=== PATIENT | female | born 1945 | race Caucasian/White ===

== ENCOUNTER 2025-01-03 18:32 | Emergency (ER) | payer MEDICARE, OTHER ==
[~2025-01-03] VITALS: Ht 157.5 cm; Wt 68.0 kg
[~2025-01-03 18:32] MED LIST: ADULT LOW DOSE81 MG PO; ANTACID GELATI1 EACH PO; B COMPLEX WITH1 EACH PO; CLONAZEPAM1 MG PO; L-LYSINE500 M1 PO; LEVOTHYROXINE75 MCG PO; LOVASTATIN10 MG PO; OMEPRAZOLE20 MG PO; PROZAC20 MG; VITAMIN D35000 UNIT PO
[2025-01-03] MEDS ORDERED: NITROGLYCERIN PACKET TOP ONE (19:30)
[2025-01-03] MEDS ORDERED: LORazepam 2 MG/ML VIAL IV ONE (19:30)
[2025-01-03 19:31] LABS: BASOPHILS 0.8 % (0.1-1.2); EOSINOPHILS 5.2 % (0.7-5.8); HEMOGLOBIN 13.2 g/dL (11.2-15.7); LYMPHOCYTES 48.1 % (19.3-51.7); MCH 30.1 PG (25.6-32.2); MCHC 33.8 g/dL (32.2-35.5); MCV 88.8 fL (79.4-94.8); MONOCYTES 9.7 % (4.7-12.5); PLATELET COUNT 329 K/uL (182-369); RBC 4.39 M/uL (3.93-5.22)
[2025-01-03 19:41] LABS: INR 0.98 (0.80-1.30); PROTIME 12.6 Sec (11.2-14.2)
[2025-01-03 19:49] LABS: ALBUMIN 3.8 g/dL (3.4-5.0); ALBUMIN/GLOBULIN RATIO 1.12 (1.1-2.4); ALKALINE PHOSPHATASE 112 U/L (46-116); ALT (SGPT) 25 U/L (14-59); ANION GAP 13.6 (7-21); AST (SGOT) 12 U/L (15-37); BILIRUBIN, TOTAL 0.3 mg/dL (0.2-1.0); CALCIUM 9.1 mg/dL (8.5-10.1); CARBON DIOXIDE 26 mmol/L (21-32); CHLORIDE 105 mmol/L (98-107); CREATININE, SERUM 0.88 mg/dL (0.55-1.02); GLOMERULAR FILTRATION RATE,EST 68 mL/min (>60); MAGNESIUM 2.1 mg/dL (1.8-2.4); POTASSIUM 3.6 mmol/L (3.5-5.1); PROTEIN, TOTAL 7.2 g/dL (6.4-8.2); UREA NITROGEN 11 mg/dL (7-18)
[2025-01-03] MEDS ORDERED: LOVASTATIN40 MG PO (19:51)
[2025-01-03] MEDS ORDERED: ZOLPIDEM TARTRA10 MG PO (19:51)
[2025-01-03] MEDS ORDERED: ESCITALOPRAM OX20 MG PO (19:51)
[2025-01-03] MEDS ORDERED: ACYCLOVIR400 MG PO (19:52)
[2025-01-03] MEDS ORDERED: LORazepam 1 MG HOME.PACK PO ONE (21:45)
[2025-01-03 21:55] VITALS: BP 152/89
--- NOTE | 2025-01-03 22:58 | EKG ---
[facility] [address] [facility] [place] [address] Signed Normal sinus rhythm Abnormal QRS-T angle, consider primary T wave abnormality Abnormal ECG No previous ECGs available Confirmed by Kole Pedroza MD () on 01/03/2025 10:57:54 PM Electronically Signed By: KOLE PEDROZA MD 01/03/25 2258 PATIENT NAME: REVA DURBIN Electrocardiogram DATE OF : 49 PHYSICIAN: KOLE PEDROZA MD REPORT #: [id number] REPORT IS CONFIDENTIAL AND NOT TO BE RELEASED WITHOUT AUTHORIZATION
== END 2025-01-03 21:54 | disposition home or self-care (01) ==
LOC: ED 18:32
PROVIDERS: Family Medicine
DX: R07.89 Other chest pain (principal); Z88.2 Allergy status to sulfonamides; Z79.899 Other long term (current) drug therapy
CPT/HCPCS: 36415; 71045; 80053; 83690; 83735; 84484; 85025; 85610; 93005; 93010; 96374; 99285-25; J2060